=== PATIENT | female | born 1950 | race Caucasian/White ===

== ENCOUNTER 2018-05-19 09:33 | Emergency (ER) | payer BC ==
[2018-05-19 09:34] VITALS: BMI 29.0
[2018-05-19 09:44] VITALS: RESP 18
[2018-05-19 10:49] VITALS: BP 154/78; PULSE 84; TEMP 98.2; O2SAT 100
--- NOTE | 2018-05-19 10:50 | C.PDOC ---
History Of Present Illness 68 year old female presents to ED complaining of rash on her left shoulder and chest for past 2 days. Patient sates it hurts when she touches it. Denies fever, chills, nausea, vomiting, chest pain, cough, shortness of breath, weakness, numbness, rash on arms or legs. No allergies to medications or antibiotics. Time Seen by Provider: 05/19/18 10:19 Chief Complaint (Nursing): Abnormal Skin Integrity History Per: Patient History/Exam Limitations: no limitations Onset/Duration Of Symptoms: Days Current Symptoms Are (Timing): Still Present Past Medical History Reviewed: Historical Data, Nursing Documentation, Vital Signs Vital Signs: Last Vital Signs Temp 98.2 F 05/19/18 10:48 Pulse 84 05/19/18 10:48 Resp 18 05/19/18 10:48 BP 154/78 H 05/19/18 10:48 Pulse Ox 100 05/19/18 10:48 - Medical History PMH: HTN Surgical History: No Surg Hx - [facility] Procedures D & C NEC (10/24/13) EXCISION OF CECUM, ENDO, DIAGN (04/18/15) EXCISION OF STOMACH, ENDO (04/18/15) TRANSFUSE NONAUT RED BLOOD CELLS IN PERIPH VEIN, PERC (04/18/15) Family History: States: No Known Family Hx - Social History Hx Alcohol Use: No Hx Substance Use: No - Immunization History Hx Tetanus Toxoid Vaccination: No Hx Influenza Vaccination: No Hx Pneumococcal Vaccination: No Review Of Systems Except As Marked, All Systems Reviewed And Found Negative. Constitutional: Negative for: Fever, Chills Cardiovascular: Negative for: Chest Pain Respiratory: Negative for: Cough, Shortness of Breath Gastrointestinal: Negative for: Nausea, Vomiting Skin: Positive for: Rash (Left shoulder and back.) Neurological: Negative for: Weakness, Numbness Physical Exam - Physical Exam Appears: Non-toxic, No Acute Distress Skin: Warm, Dry, Rash (Vesicular rash that starts from back of neck that spread to left shoulder and chest. Dermatomal distribution. ) Head: Atraumatic, Normacephalic Eye(s): bilateral: PERRL, EOMI Oral Mucosa: Moist Throat: No Erythema, No Exudate Neck: Normal ROM, Supple Chest: Symmetrical, No Deformity Cardiovascular: Rhythm Regular, No Friction Rub, No Murmur Respiratory: Normal Breath Sounds, No Rales, No Rhonchi, No Wheezing Gastrointestinal/Abdominal: Soft, No Tenderness Back: Normal Inspection, No CVA Tenderness Extremity: Normal ROM, No Swelling Neurological/Psych: Oriented x3, Normal Motor Gait: Steady ED Course And Treatment O2 Sat by Pulse Oximetry: 100 (RA) Pulse Ox Interpretation: Normal Medical Decision Making Medical Decision Making: Plan: * Zovirax * Prednisone Disposition - Disposition Referrals: [facility] [Outside] Disposition: HOME/ ROUTINE Disposition Time: 10:50 Condition: STABLE Additional Instructions: Return if worsened. Prescriptions: Acetaminophen [Tylenol] 325 mg PO Q6 PRN #30 tab PRN Reason: Pain, Mild (1-3) Acyclovir [Zovirax] 800 mg PO 5XD #34 tab Ibuprofen [Motrin] 1 tab PO TID PRN #30 tab PRN Reason: Pain predniSONE [Prednisone] 10 mg PO BID #10 tab Instructions: Shingles (DC) Forms: [employer] ([place]se) - Clinical Impression Clinical Impression: Herpes zoster - PA / INTAKE RN / Resident Statement MD/DO has reviewed & agrees with the documentation as recorded. - Scribe Statement The provider has reviewed the documentation as recorded by the Scribe Christopher Sears All medical record entries made by the Krystal were at my direction and personally dictated by me. I have reviewed the chart and agree that the record accurately reflects my personal performance of the history, physical exam, medical decision making, and the department course for this patient. I have also personally directed, reviewed, and agree with the discharge instructions and disposition.
== END 2018-05-19 11:02 | disposition home or self-care (01) ==
LOC: C.ER 09:33
DX: B02.9 Zoster without complications (principal); I10 Essential (primary) hypertension